=== PATIENT | female | born 1960 | race Caucasian/White ===

== ENCOUNTER → 2024-05-08 | Outpatient (CLI) | payer MEDICARE, MEDICAID, SELFPAY ==
--- NOTE | 2024-05-08 14:33 | XR_ITS ---
Examination: Lumbar spine, 5 views Technique: Lumbar spine AP, lateral, coned lateral lower lumbar spine, bilateral obliques 5 views Exam date and time: May 08, 2024 1448 hours INDICATIONS: Low back pain months FINDINGS: Moderate osteopenia Lumbar levoscoliosis 20 degrees Diffuse prominent facet arthropathy No lumbar fracture Mild to moderate lumbar disc narrowing most prominent L2-L3 IMPRESSION: [id number] lumbar degenerative disc disease, most prominent L2-L3 Also moderate degenerative disc disease T11-T12
--- NOTE | 2024-05-08 14:33 | XR_ITS ---
Examination: Shoulder bilateral, 6 views Technique: Shoulder AP internal rotation, AP external rotation, Y view each shoulder total 6 views Exam date and time :May 08, 2024 1453 hours INDICATIONS: Bilateral shoulder pain months. FINDINGS: Moderate osteopenia Bilateral moderate narrowing glenohumeral joints No fracture or dislocation involving either shoulder Mild bilateral osteoarthritis acromioclavicular joints IMPRESSION: Bilateral moderate narrowing glenohumeral joints
== END | disposition home or self-care (01) ==
PROVIDERS: PCP Nurse Practitioner Family; Referring Provider Nurse Practitioner Family; Visit Provider Nurse Practitioner Family
DX: M51.369 Other intervertebral disc degeneration, lumbar region without mention of lumbar back pain or lower extremity pain (principal); M51.34 Other intervertebral disc degeneration, thoracic region; M25.812 Other specified joint disorders, left shoulder; M25.811 Other specified joint disorders, right shoulder
CPT/HCPCS: 72110; 73030

== ENCOUNTER → 2024-06-02 | Outpatient (CLI) | payer MEDICARE, SELFPAY ==
--- NOTE | 2024-06-02 | XR_ITS ---
Examination: Screening digital mammography, bilateral Computer aided detection 3-D breast Tomosynthesis, bilateral Date and time of exam: June 02, 2024 1413 hours Compared to mammograms dating to August 29, 2013 Indication: Screening Technique: Nonmagnified MLO, CC views of the breasts to been obtained, reconstructed from 3-D Tomosynthesis images. R2 computer aided detection program utilized for evaluation of suspicious masses and/or abnormal calcifications. 3-D Tomosynthesis images obtained. Findings: Scattered areas of fibroglandular density Benign calcifications No interval suspicious masses Impression: BI-RADS category II: Benign Findings. Recommend 1 year follow-up mammogram.
== END | disposition home or self-care (01) ==
PROVIDERS: Referring Provider Internal Medicine; Visit Provider Internal Medicine
DX: Z12.31 Encounter for screening mammogram for malignant neoplasm of breast (principal); R92.323 Mammographic fibroglandular density, bilateral breasts; R92.1 Mammographic calcification found on diagnostic imaging of breast
CPT/HCPCS: 77063; 77067